=== PATIENT | female | born 1945 | race Caucasian/White ===

== ENCOUNTER 2016-08-09 13:45 | Emergency (ER) | payer MEDICARE, OTHER | END 2016-08-09 14:35 | disposition home or self-care (01) | LOC: ER1 13:45 | DX: R21 Rash and other nonspecific skin eruption (principal); B02.9 Zoster without complications; R30.0 Dysuria; I11.9 Hypertensive heart disease without heart failure; E11.9 Type 2 diabetes mellitus without complications; E78.5 Hyperlipidemia, unspecified; Z95.1 Presence of aortocoronary bypass graft; Z90.49 Acquired absence of other specified parts of digestive tract; Z79.84 Long term (current) use of oral hypoglycemic drugs; Z79.82 Long term (current) use of aspirin; Z79.02 Long term (current) use of antithrombotics/antiplatelets; Z79.899 Other long term (current) drug therapy | CPT/HCPCS: 81001; 87086; 99283 ==

== ENCOUNTER → 2020-06-19 | Outpatient (CLI) | payer OTHER ==
[~2020-06-19] MED LIST: ACIDOPHILUS1 EACH PO; CO Q10100 MG PO; FISH OIL 1,0001 EAC1 PO; FUROSEMIDE40 MG PO; GLIMEPIRIDE4 MG PO; GRAPE SEED EXTR50 MG PO; ISOSORBIDE MONO30 MG PO; JANUVIA100 MG PO; LANTUS100 UNIT/1 SQ; MAGNESIUM250 M1 PO; MECLIZINE HCL25 MG PO; METFORMIN HCL500 MG PO; METOPROLOL TART25 MG PO; MILK THISTLE PO; MULTI VIT PO; NITROSTAT 0.40.4 MG SL; OMEPRAZOLE40 MG PO; PLAVIX 75 MG TA75 MG PO; RAMIPRIL5 MG PO; SIMVASTATIN40 MG PO; TRICOR145 MG PO; VIT B COMPLEX PO; VIT C PO; VIT D3 PO
== END ==
LOC: HEART CORB 14:28
DX: R06.00 Dyspnea, unspecified (principal); R60.9 Edema, unspecified; I25.10 Atherosclerotic heart disease of native coronary artery without angina pectoris; I50.9 Heart failure, unspecified; I08.3 Combined rheumatic disorders of mitral, aortic and tricuspid valves; I27.20 Pulmonary hypertension, unspecified
CPT/HCPCS: 93306